=== PATIENT | male | born 1960 | race Caucasian/White ===

== ENCOUNTER → 2023-01-02 | Outpatient (REF) | payer SELFPAY | LOC: M LAB REF 18:02 | PROVIDERS: ATTEND Otolaryngology | DX: D37.09 Neoplasm of uncertain behavior of other specified sites of the oral cavity (principal) ==

== ENCOUNTER → 2023-01-04 | Outpatient (CLI) | payer SELFPAY ==
[~2023-01-04] MED LIST: ISOVUE-370 76% 100ML VIAL As Ordered ONE
== END ==
LOC: M RAD 07:45
PROVIDERS: ATTEND Otolaryngology
DX: D37.09 Neoplasm of uncertain behavior of other specified sites of the oral cavity (principal)
CPT/HCPCS: 70491; Q9967

== ENCOUNTER → 2023-01-21 | Outpatient (CLI) | payer OTHER ==
[~2023-01-21] MED LIST changes: +ATIV1TAB10 PO; +HYDR-3713; +HYDR-4517 PO; -ISOVUE-370 76% 100ML VIAL As Ordered ONE; +LORA1TAB23 PO
== END ==
LOC: M PLARAD 12:50
PROVIDERS: ATTEND Otolaryngology
DX: D37.09 Neoplasm of uncertain behavior of other specified sites of the oral cavity (principal)

== ENCOUNTER → 2023-01-23 | Outpatient (CLI) | payer OTHER ==
[~2023-01-23] VITALS: Ht 162.6 cm; Wt 48.2 kg
[~2023-01-23] MED LIST changes: +LIDOCAINE 1% MDV 20ML VIAL As Ordered ONE; +LIDOCAINE W/EPINEPHRINE 1% 20ML VIAL As Ordered ONE; +MIDAZOLAM INJ 2MG/2ML VIAL As Ordered ONE; +NS 1,000 ML IV SCH; +ceFAZolin 2 GM/D5W 50 ML IV BAG As Ordered ONE; +ceFAZolin SOD 2 GM in IV 1 EA IV ONE; +fentaNYL 100 MCG/2 ML INJECTION As Ordered ONE
[2023-01-23 12:55] VITALS: TEMP 98.4
[2023-01-23 15:45] VITALS: BP 174/96; O2SAT 100
== END ==
LOC: M IRPRO 12:48
PROVIDERS: ATTEND Internal Medicine Medical Oncology
DX: C83.30 Diffuse large B-cell lymphoma, unspecified site (principal)
CPT/HCPCS: 36561; 99152; 99153; J0690; J2250; J3010

== ENCOUNTER → 2023-01-24 | Outpatient (CLI) | payer OTHER ==
[~2023-01-24] MED LIST changes: -LIDOCAINE W/EPINEPHRINE 1% 20ML VIAL As Ordered ONE; -MIDAZOLAM INJ 2MG/2ML VIAL As Ordered ONE; -NS 1,000 ML IV SCH; -ceFAZolin 2 GM/D5W 50 ML IV BAG As Ordered ONE; -ceFAZolin SOD 2 GM in IV 1 EA IV ONE; -fentaNYL 100 MCG/2 ML INJECTION As Ordered ONE
[2023-01-24 12:45] VITALS: TEMP 98.3
[2023-01-24 13:20] VITALS: BP 121/74; O2SAT 99
[2023-01-24 13:37] LABS: BASO # 0.1 10^3/uL (0.0-0.2); BASO % 0.9 % (0.0-1.0); EOS # 0.2 10^3/uL (0.0-0.5); EOS % 2.1 % (0.0-3.0); HEMOGLOBIN 12.7 g/dl (13.5-17.5); LYMPH # 2.2 10^3/uL (1.5-5.0); LYMPH % 22.8 % (24.0-44.0); MEAN CORPUSCULAR HGB CONC 33.4 g/dl (32.0-36.5); MEAN CORPUSCULAR VOLUME 92.7 fl (80.0-96.0); MONO % 10.6 % (2.0-8.0); NEUTROPHILS # 6.1 10^3/uL (1.5-8.5); NEUTROPHILS % 63.2 % (36.0-66.0); PLATELET COUNT, AUTOMATED 327 10^3/uL (150-450); WHITE BLOOD COUNT 9.6 10^3/uL (4.0-10.0)
== END ==
LOC: M IRPRO 12:39
PROVIDERS: ATTEND Internal Medicine Medical Oncology
DX: D17.9 Benign lipomatous neoplasm, unspecified (principal)

== ENCOUNTER → 2023-01-24 | Outpatient (CLI) | payer OTHER ==
[~2023-01-24] MED LIST changes: -LIDOCAINE 1% MDV 20ML VIAL As Ordered ONE
== END ==
LOC: M ONCR 14:40
PROVIDERS: ATTEND General Practice
DX: C83.31 Diffuse large B-cell lymphoma, lymph nodes of head, face, and neck (principal); F12.90 Cannabis use, unspecified, uncomplicated; F17.210 Nicotine dependence, cigarettes, uncomplicated; Z71.2 Person consulting for explanation of examination or test findings; Z92.21 Personal history of antineoplastic chemotherapy
CPT/HCPCS: 31575; G0463

== ENCOUNTER → 2023-01-24 | Outpatient (CLI) | payer OTHER | LOC: M CARPUL 13:45 | PROVIDERS: ATTEND Internal Medicine Medical Oncology | DX: C85.90 Non-Hodgkin lymphoma, unspecified, unspecified site (principal) ==

== ENCOUNTER → 2023-02-19 | Outpatient (CLI) | payer OTHER | LOC: M PAL 14:29 | PROVIDERS: ATTEND Nurse Practitioner Adult Health | DX: C83.31 Diffuse large B-cell lymphoma, lymph nodes of head, face, and neck (principal); C14.2 Malignant neoplasm of Waldeyer's ring; F41.9 Anxiety disorder, unspecified; K59.00 Constipation, unspecified; R63.0 Anorexia; F12.90 Cannabis use, unspecified, uncomplicated; Z51.5 Encounter for palliative care; F17.210 Nicotine dependence, cigarettes, uncomplicated; Z79.52 Long term (current) use of systemic steroids; Z79.891 Long term (current) use of opiate analgesic; Z79.899 Other long term (current) drug therapy; Z92.21 Personal history of antineoplastic chemotherapy ==

== ENCOUNTER → 2023-03-28 | Outpatient (CLI) | payer OTHER ==
[~2023-03-28] VITALS: Ht 162.6 cm; Wt 50.9 kg
[2023-03-28 08:06] VITALS: BP 126/79; O2SAT 99
== END ==
LOC: M PAL 07:53
PROVIDERS: ATTEND Nurse Practitioner Adult Health
DX: C83.31 Diffuse large B-cell lymphoma, lymph nodes of head, face, and neck (principal); C14.2 Malignant neoplasm of Waldeyer's ring; F41.9 Anxiety disorder, unspecified; R63.0 Anorexia; Z51.5 Encounter for palliative care; F17.210 Nicotine dependence, cigarettes, uncomplicated; Z79.52 Long term (current) use of systemic steroids; Z79.891 Long term (current) use of opiate analgesic; Z79.899 Other long term (current) drug therapy; Z92.21 Personal history of antineoplastic chemotherapy

== ENCOUNTER → 2023-05-07 | Outpatient (CLI) | payer OTHER | LOC: M ONCR 14:20 | PROVIDERS: ATTEND General Practice | DX: C83.31 Diffuse large B-cell lymphoma, lymph nodes of head, face, and neck (principal); F17.210 Nicotine dependence, cigarettes, uncomplicated; Z71.2 Person consulting for explanation of examination or test findings; Z79.899 Other long term (current) drug therapy; Z92.21 Personal history of antineoplastic chemotherapy | CPT/HCPCS: 31575; G0463 ==

== ENCOUNTER 2023-05-13 10:12 | Outpatient (RCR) | payer OTHER | END 2023-05-15 | LOC: M ONCR 10:12 | PROVIDERS: ATTEND General Practice | DX: Z51.0 Encounter for antineoplastic radiation therapy (principal); C83.31 Diffuse large B-cell lymphoma, lymph nodes of head, face, and neck ==

== ENCOUNTER → 2023-05-30 | Outpatient (CLI) | payer OTHER ==
[~2023-05-30] VITALS: Ht 162.6 cm; Wt 51.6 kg
[2023-05-30 09:24] VITALS: BP 127/73; O2SAT 100
== END ==
LOC: M PAL 08:53
PROVIDERS: ATTEND Nurse Practitioner Adult Health
DX: C83.31 Diffuse large B-cell lymphoma, lymph nodes of head, face, and neck (principal); C14.2 Malignant neoplasm of Waldeyer's ring; F41.9 Anxiety disorder, unspecified; Z51.5 Encounter for palliative care; F17.210 Nicotine dependence, cigarettes, uncomplicated; Z79.891 Long term (current) use of opiate analgesic; Z79.899 Other long term (current) drug therapy; Z92.21 Personal history of antineoplastic chemotherapy; Z92.3 Personal history of irradiation

== ENCOUNTER → 2023-06-03 | Outpatient (CLI) | payer OTHER | LOC: M CARPUL 08:07 | PROVIDERS: ATTEND Internal Medicine Hematology & Oncology | DX: C83.31 Diffuse large B-cell lymphoma, lymph nodes of head, face, and neck (principal) ==

== ENCOUNTER 2023-06-12 14:12 | Outpatient (RCR) | payer OTHER ==
[~2023-06-12 14:12] MED LIST changes: +LIDOCAINE 2% MDV 20ML VIAL XX ONE
== END 2023-06-13 ==
LOC: M ONCR 14:12
PROVIDERS: ATTEND General Practice
DX: Z51.0 Encounter for antineoplastic radiation therapy (principal); C83.31 Diffuse large B-cell lymphoma, lymph nodes of head, face, and neck

== ENCOUNTER → 2023-06-26 | Outpatient (CLI) | payer OTHER ==
[~2023-06-26] MED LIST changes: -LIDOCAINE 2% MDV 20ML VIAL XX ONE
== END ==
LOC: M ONCR 13:21
PROVIDERS: ATTEND General Practice
DX: C83.31 Diffuse large B-cell lymphoma, lymph nodes of head, face, and neck (principal); Z92.3 Personal history of irradiation

== ENCOUNTER → 2023-09-17 | Outpatient (CLI) | payer OTHER | LOC: M ONCR 13:20 | PROVIDERS: ATTEND General Practice | DX: Z08 Encounter for follow-up examination after completed treatment for malignant neoplasm (principal); Z85.79 Personal history of other malignant neoplasms of lymphoid, hematopoietic and related tissues; Z71.2 Person consulting for explanation of examination or test findings; F17.210 Nicotine dependence, cigarettes, uncomplicated; Z92.21 Personal history of antineoplastic chemotherapy; Z92.3 Personal history of irradiation | CPT/HCPCS: 31575; G0463 ==

== ENCOUNTER → 2023-11-19 | Outpatient (CLI) | payer OTHER ==
[~2023-11-19] VITALS: Ht 162.6 cm; Wt 49.7 kg
[2023-11-19 08:53] VITALS: BP 124/70; O2SAT 99
== END ==
LOC: M PAL 08:35
PROVIDERS: ATTEND Nurse Practitioner Adult Health
DX: C83.31 Diffuse large B-cell lymphoma, lymph nodes of head, face, and neck (principal); C14.2 Malignant neoplasm of Waldeyer's ring; Z51.5 Encounter for palliative care; F17.210 Nicotine dependence, cigarettes, uncomplicated; Z79.891 Long term (current) use of opiate analgesic; Z79.899 Other long term (current) drug therapy; Z92.21 Personal history of antineoplastic chemotherapy; Z92.3 Personal history of irradiation

== ENCOUNTER → 2024-03-05 | Outpatient (CLI) | payer OTHER ==
[~2024-03-05] MED LIST changes: +LIDOCAINE 1% MDV 20ML VIAL As Ordered ONE; +LIDOCAINE W/EPINEPHRINE 1% 20ML VIAL As Ordered ONE; +MIDAZOLAM INJ 2MG/2ML VIAL As Ordered ONE; +ceFAZolin 2 GM/D5W 50 ML IV BAG As Ordered ONE; +fentaNYL 100 MCG/2 ML INJECTION As Ordered ONE
[2024-03-05 14:27] VITALS: TEMP 98.7
[2024-03-05 17:59] VITALS: BP 148/75; O2SAT 97
== END ==
LOC: M IRPRO 14:23
PROVIDERS: ATTEND Physician Assistant Medical
DX: C85.10 Unspecified B-cell lymphoma, unspecified site (principal)
CPT/HCPCS: 36590; J0690; J2250; J3010

== ENCOUNTER → 2024-05-28 | Outpatient (CLI) | payer OTHER ==
[~2024-05-28] MED LIST changes: -LIDOCAINE 1% MDV 20ML VIAL As Ordered ONE; -LIDOCAINE W/EPINEPHRINE 1% 20ML VIAL As Ordered ONE; -MIDAZOLAM INJ 2MG/2ML VIAL As Ordered ONE; -ceFAZolin 2 GM/D5W 50 ML IV BAG As Ordered ONE; -fentaNYL 100 MCG/2 ML INJECTION As Ordered ONE
== END ==
LOC: M ONCR 13:50
PROVIDERS: ATTEND General Practice
DX: L85.1 Acquired keratosis [keratoderma] palmaris et plantaris (principal); C83.3A Diffuse large B-cell lymphoma, in remission
CPT/HCPCS: 11102; 88305; G0463

== ENCOUNTER → 2024-05-28 | Outpatient (CLI) | payer OTHER ==
[~2024-05-28] VITALS: Ht 162.6 cm; Wt 54.7 kg
[2024-05-28 13:36] VITALS: BP 121/71; O2SAT 98
== END ==
LOC: M PAL 13:19
PROVIDERS: ATTEND Family Medicine
DX: C85.1A Unspecified B-cell lymphoma, in remission (principal); Z92.3 Personal history of irradiation; Z92.21 Personal history of antineoplastic chemotherapy; Z79.899 Other long term (current) drug therapy

== ENCOUNTER 2024-08-26 09:55 | Emergency (ER) | payer OTHER ==
[~2024-08-26] VITALS: Ht 162.6 cm; Wt 48.1 kg
[2024-08-26 11:03] LABS: BASO % 0.4 % (0.0-1.0); EOS % 0.4 % (0.0-3.0); HEMATOCRIT 43.2 % (42.0-52.0); HEMOGLOBIN 14.5 g/dl (13.5-17.5); LYMPH # 0.5 10^3/uL (1.5-5.0); LYMPH % 5.5 % (24.0-44.0); MEAN CORPUSCULAR HEMOGLOBIN 31.3 pg (27.0-33.0); MEAN CORPUSCULAR HGB CONC 33.6 g/dl (32.0-36.5); MEAN CORPUSCULAR VOLUME 93.3 fl (80.0-96.0); NEUTROPHILS # 8.2 10^3/uL (1.5-8.5); NEUTROPHILS % 82.9 % (36.0-66.0); PLATELET COUNT, AUTOMATED 204 10^3/uL (150-450); RED BLOOD COUNT 4.63 10^6/uL (4.30-6.10); WHITE BLOOD COUNT 9.9 10^3/uL (4.0-10.0)
[2024-08-26 11:33] LABS: LIPASE 22 U/L (12-53)
[2024-08-26 11:35] LABS: ALBUMIN 3.1 G/DL (3.2-5.2); ALKALINE PHOSPHATASE 80 U/L (40-129); ALT/SGPT 43 U/L (7.0-40); AST/SGOT 45 U/L (<34); BILIRUBIN,TOTAL 0.4 MG/DL (0.3-1.2); BLOOD UREA NITROGEN 14 MG/DL (9-23); CALCIUM LEVEL 8.5 MG/DL (8.3-10.6); CARBON DIOXIDE LEVEL 26 MMOL/L (20-31); CHLORIDE LEVEL 104 MMOL/L (98-107); CREATININE FOR GFR 0.75 MG/DL (0.70-1.30); GLOMERULAR FILTRATION RATE > 90.0 (>49); GLUCOSE, FASTING 107 MG/DL (74-106); POTASSIUM SERUM 4.2 MMOL/L (3.5-5.1); SODIUM LEVEL 137 MMOL/L (136-145); TOTAL PROTEIN 6.3 G/DL (5.7-8.2)
[2024-08-26] MEDS ORDERED: ISOVUE-370 76% 100ML VIAL As Ordered ONE (11:41)
[2024-08-26 12:17] LABS: KETONE, URINE AUTO RFX NEGATIVE (NEGATIVE); LEUKOCYTE ESTERASE UR AUTO RFX NEGATIVE (NEGATIVE); MUCUS, URINE RFX LARGE (NEGATIVE); NITRITE, URINE AUTO RFX NEGATIVE (NEGATIVE); RBC, URINE AUTO RFX 1 /HPF (0-3); SQUAM EPITHELIAL CELL UR AURFX 0 /HPF (0-6); WBC, URINE AUTO RFX 2 /HPF (0-3)
[2024-08-26] MEDS: AUGMENTIN 875 MG TAB PO ONE (12:57)
[2024-08-26 14:00] VITALS: BP 122/72; TEMP 98.7
[2024-08-26] MEDS ORDERED: AMOX875T2 PO (14:07)
[2024-08-26 14:15] VITALS: O2SAT 99
== END 2024-08-26 14:22 | disposition home or self-care (01) ==
LOC: M ED 09:55
DX: K57.92 Diverticulitis of intestine, part unspecified, without perforation or abscess without bleeding (principal); F17.210 Nicotine dependence, cigarettes, uncomplicated; Z79.2 Long term (current) use of antibiotics
CPT/HCPCS: 36415; 71045; 74177; 76705; 80053; 81001; 83605; 83690; 85025; 87040; 87077; 87154; 87186; 87486; 87581; 87633; 87798; 99284; Q9967

== ENCOUNTER 2024-08-28 14:33 | Emergency (ER) | payer OTHER ==
[~2024-08-28] VITALS: Ht 162.6 cm; Wt 49.2 kg
[~2024-08-28 14:33] MED LIST changes: +AMOX875T2 PO
[2024-08-28 19:17] VITALS: BP 141/78; TEMP 96.9; O2SAT 100
== END 2024-08-28 19:34 | disposition home or self-care (01) ==
LOC: M ED 14:33
DX: R79.9 Abnormal finding of blood chemistry, unspecified (principal); F17.210 Nicotine dependence, cigarettes, uncomplicated; Z79.2 Long term (current) use of antibiotics